=== PATIENT | male | born 1965 | race Caucasian/White ===

== ENCOUNTER 2018-03-05 05:36 | Emergency (ER) | payer BC, OTHER ==
[2018-03-05] MEDS ORDERED: KETOROLAC TROMETHAMINE INJ 30 MG/ML VIAL IV ONE (05:50)
[2018-03-05] MEDS ORDERED: ONDANSETRON INJ 4 MG/2 ML VIAL IV ONE (05:50)
[2018-03-05] MEDS ORDERED: MORPHINE SULFATE INJ 10 MG/ML VIAL IV ONE (05:51)
[2018-03-05] MEDS ORDERED: SODIUM CHLORIDE 0.9% 1000ML 1,000 ML IVS ONE (05:51)
[2018-03-05 05:53] VITALS: TEMP 97
--- NOTE | 2018-03-05 05:54 | ED.PDOC ---
History of Present Illness - General Source: patient, RN notes reviewed, Vital Signs reviewed Exam Limitations: no limitations - History of Present Illness Timing/Duration: just prior to arrival, this morning Quality: moderate Onset Location: groin Radiation: left flank Activites at Onset: none Prior abdominal problems: none Improving Factors: nothing Worsening Factors: nothing Associated Symptoms: nausea/vomiting, urinary frequency <Tank Starkey - Last Filed: 03/05/18 06:51> <JES MAHONEY - Last Filed: 03/05/18 07:30> - General Chief Complaint: Problem Stated Complaint: throbbing pain low back, abd, and scrotal sac Time Seen by Provider: 03/05/18 05:43 - History of Present Illness Allergies/Adverse Reactions: Allergies NO KNOWN ALLERGY Allergy (Verified 03/05/18 05:46) Home Medications: Ambulatory Orders Aspirin [Durga Chewable Low Dose] 81 PO DAILY 02/08/14 Olmesartan Medoxomil [Benicar] 10 PO DAILY 02/08/14 Tramadol HCl [Ultram] 100 mg PO Q8HRS PRN 2 Days #10 tab 03/05/18 Review of Systems - Review of Systems Constitutional: States: no symptoms reported EENTM: States: no symptoms reported Respiratory: States: no symptoms reported Cardiology: States: no symptoms reported Gastrointestinal/Abdominal: States: abdominal pain, nausea Genitourinary: States: no symptoms reported Musculoskeletal: States: no symptoms reported Skin: States: no symptoms reported Neurological: States: no symptoms reported Endocrine: States: no symptoms reported Hematologic/Lymphatic: States: no symptoms reported <Tank Starkey - Last Filed: 03/05/18 06:51> Past Medical History (General) - Patient Medical History Hx Congestive Heart Failure: No Hx Hypertension: Yes Hx Diabetes: No Surgical History: other - Vaccination History Hx Tetanus, Diphtheria Vaccination: No Hx Influenza Vaccination: No Hx Pneumococcal Vaccination: No - Social History Hx Tobacco Use: No Hx Alcohol Use: Yes - beer <Tank Starkey - Last Filed: 03/05/18 06:51> Family Medical History - Family History Father Hx Cardiac Disease: Yes <Takn Starkey - Last Filed: 03/05/18 06:51> Physical Exam - Physical Exam General Appearance: Alert, Obvious distress, Restless, Well Groomed, Well Nourished Eyes, Ears, Nose, Throat Exam: PERRL/EOMI, normal ENT inspection Neck: non-tender, full range of motion, supple Cardiovascular/Respiratory: regular rate, rhythm, no M/R/G, normal peripheral pulses, no JVD, normal breath sounds, no respiratory distress Gastrointestinal/Abdominal: normal bowel sounds, non tender, soft, other - no pulsitile mass Back Exam: normal inspection, CVA tenderness (L) Extremity: normal range of motion, non-tender, normal inspection, no pedal edema , no calf tenderness Neurologic: no motor/sensory deficits, alert Skin Exam: normal color, warm/dry Lymphatic: no adenopathy <Tank Starkey - Last Filed: 03/05/18 06:51> Progress - Progress Progress: 03/05/18 05:54 pt with history of kidney stone states feels similarly; past previous stone without complications. discussed treatment plan with pt and family. pt states has started to feel improved. discussed reasons for CT scan and will wait pending lab/ urine results. will treat symptomatically at this time for kidneystone given pt's presentation. do not feel that patient has torsion/ hernia/ AAA/ dissection/ colitis/ diverticulitis at this time after my examination / HPI 03/05/18 06:51 03/05/18 05:51 Sodium Chloride 0.9% 1000ML [Ns 1000 ml] 1,000 ml IVS ONCE 03/05/18 05:54 URINALYSIS Stat Laboratory Results WBC 4.1 K/mm3 (4.8-10.8) L 03/05/18 05:51 RBC 4.92 M/mm3 (4.70-6.10) 03/05/18 05:51 Hgb 15.2 gm/dL (14.0-18.0) 03/05/18 05:51 Hct 43.6 % (42.0-52.0) 03/05/18 05:51 MCV 88.6 fl (80.0-94.0) 03/05/18 05:51 MCH 31.0 pg (27.0-31.0) 03/05/18 05:51 MCHC 35.0 g/dL (33.0-37.0) 03/05/18 05:51 RDW 13.3 % (11.5-14.5) 03/05/18 05:51 Plt Count 219 K/mm3 (130-400) 03/05/18 05:51 MPV 6.5 fl (7.40-10.4) L 03/05/18 05:51 Absolute Neuts (auto) 2.00 K/uL (1.8-6.8) 03/05/18 05:51 Absolute Lymphs (auto) 1.50 K/uL (1.0-3.4) 03/05/18 05:51 Absolute Monos (auto) 0.50 K/uL (0.2-0.8) 03/05/18 05:51 Absolute Eos (auto) 0.10 K/uL (0.0-0.4) 03/05/18 05:51 Absolute Basos (auto) 0.00 K/uL (0.0-0.1) 03/05/18 05:51 Neutrophils % 49.5 % (42.0-78.0) 03/05/18 05:51 Lymphocytes % 35.6 % (20.0-50.0) 03/05/18 05:51 Monocytes % 11.9 % (2.0-9.0) H 03/05/18 05:51 Eosinophils % 2.3 % (1.0-5.0) 03/05/18 05:51 Basophils % 0.7 % (0.0-2.0) 03/05/18 05:51 Sodium 137 mmol/L (135-145) 03/05/18 05:51 Potassium 3.9 mmol/L (3.6-5.0) 03/05/18 05:51 Chloride 104 mmol/L (101-111) 03/05/18 05:51 Carbon Dioxide 24 mmol/L (21-31) 03/05/18 05:51 Anion Gap 12.9 (12-18) 03/05/18 05:51 BUN 27 mg/dL (7-18) H 03/05/18 05:51 Creatinine 1.03 mg/dL (0.6-1.3) 03/05/18 05:51 BUN/Creatinine Ratio 26.2 (10-20) H 03/05/18 05:51 Random Glucose 104 mg/dL (70-105) 03/05/18 05:51 Serum Osmolality 279.2 mOsm/L (275-295) 03/05/18 05:51 Calcium 9.4 mg/dL (8.4-10.2) 03/05/18 05:51 Total Bilirubin 0.6 mg/dL (0.2-1.0) 03/05/18 05:51 AST 20 IU/L (10-42) 03/05/18 05:51 ALT 20 IU/L (10-60) 03/05/18 05:51 Alkaline Phosphatase 57 IU/L (42-121) 03/05/18 05:51 Serum Total Protein 7.3 gm/dL (6.4-8.2) 03/05/18 05:51 Albumin 4.5 g/dl (3.2-5.5) 03/05/18 05:51 Globulin 2.8 gm/dL (2.3-3.5) 03/05/18 05:51 Albumin/Globulin Ratio 1.6 (1.1-1.9) 03/05/18 05:[address] Mahoney, pt currently symptom free <Tank Starkey - Last Filed: 03/05/18 06:51> - Progress Progress: 03/05/18 07:24 Trace scrotal discomfort but otherwise feels fine. He feels that the pain was lessening somewhat even before the meds. Previous stone was on the right. Has been having increased heat exposure recently. He appears comfortable. His abd is nontender & I do not feel a mass or the aorta.. I agree with Dr. Starkey that this is most likely a kidney stone. I do not think he needs any further work up at this time. He has a PCP & I have encouraged him to f/u with him. - Results/Orders Results/Orders: microscopic hematuria; WBC 4 <JES MAHONEY - Last Filed: 03/05/18 07:30> Departure <Tank Starkey - Last Filed: 03/05/18 06:51> - Departure Time of Disposition: 07:28 <JES MAHONEY - Last Filed: 03/05/18 07:30> - Departure Clinical Impression: Kidney stone on left side Disposition: Discharge to Home or Self Care Condition: Good Departure Forms: ED Discharge - Pt. Copy, Patient Portal Self Enrollment Instructions: DI for Kidney Stones Referrals: Moose Duran III, MD [Primary Care Provider] - 1-5 Days Prescriptions: Tramadol HCl [Ultram] 100 mg PO Q8HRS PRN 2 Days #10 tab PRN Reason: Moderate To Severe Pain Home Medications: Ambulatory Orders Aspirin [Durga Chewable Low Dose] 81 PO DAILY 02/08/14 Olmesartan Medoxomil [Benicar] 10 PO DAILY 02/08/14 Tramadol HCl [Ultram] 100 mg PO Q8HRS PRN 2 Days #10 tab 03/05/18
[2018-03-05 07:55] VITALS: BP 112/78; O2SAT 94
== END 2018-03-05 07:45 | disposition home or self-care (01) ==
LOC: ER 05:36
DX: N20.0 Calculus of kidney (principal); I10 Essential (primary) hypertension; Z79.82 Long term (current) use of aspirin
CPT/HCPCS: 36415; 80053; 81001; 85025; J1885; J2270; J2405; J7030

== ENCOUNTER → 2018-05-29 | Outpatient (CLI) | payer OTHER ==
--- NOTE | 2018-05-29 15:12 | MRI ---
EXAM DESCRIPTION: Lumbar Spine w/o Contrast : Magnetic Resonance Imaging. CLINICAL HISTORY: LOW BACK PAIN COMPARISON: None. TECHNIQUE: Multiplanar, multiple standard sequences, non contrast MRI, lumbar spine. FINDINGS: L5-S1: Minimal desiccation. Posterior midline and left paracentral bulge 4 mm with bright T2-weighted annular fissure. Moderate left paracentral canal narrowing. Near stenosis of the right foramen and moderate narrowing of the left foramen. Minimal arthrosis bilateral facets. L4-5: Disc desiccation with disc space preserved and no bulging. Hyperintense T1 and T2 signal in the left posterior lateral disc margin. Minimal facet arthrosis and hypertrophy bilaterally with mild narrowing of the canal and moderate narrowing of the bilateral foramina. Well-circumscribed hyperintense T1 and T2 signal in the L4 vertebral body. L3-4: Normal signal in the disc with no bulging. Disc space maintained. Posterior elements unremarkable. Canal and bilateral foramina are patent. L2-3: Normal signal in the disc and disc space preserved. Posterior elements unremarkable. Canal and foramina are patent. L1-2: Normal signal in the disc and disc space preserved. Posterior elements unremarkable. Canal and foramina are patent. T12-L1: Normal signal in the disc and disc space preserved. Canal and foramina are patent. Posterior elements unremarkable. Conus terminates at this level. Anatomic alignment and curvature of the spine. Paravertebral soft tissues are negative. Normal marrow signal in the remaining vertebral bodies and the posterior elements. Vertebral bodies are not compressed at any level. IMPRESSION: 1. L5-S1 disc desiccation with left paracentral disc bulge with annular fissure. Moderate canal narrowing. Near stenosis of the right foramen with arthrosis of the facet. 2. Moderate narrowing of the bilateral foramina at L4-5 with facet arthrosis. Disc with no bulging but left posterior lateral annular fissure abutting the foramen. Hemangioma in the L4 vertebral body. Electronically signed by: Srinivas Metz MD 05/29/2018 3:11 PM CDT
== END ==
LOC: MRI 11:03
PROVIDERS: ATTEND Family Medicine
DX: M51.17 Intervertebral disc disorders with radiculopathy, lumbosacral region (principal)

== ENCOUNTER 2018-06-02 00:54 | Emergency (ER) | payer OTHER ==
[2018-06-02 01:11] VITALS: TEMP 98.9
[2018-06-02] MEDS: KETOROLAC TROMETHAMINE INJ 30 MG/ML VIAL IM ONE (01:17)
[2018-06-02] MEDS: MORPHINE SULFATE INJ 10 MG/ML VIAL IM ONE (01:17)
--- NOTE | 2018-06-02 01:19 | ED.PDOC ---
History of Present Illness - General Chief Complaint: Back Pain or Injury Stated Complaint: back pain radiates down left leg,2 herniated disks Time Seen by Provider: 06/02/18 01:13 Source: patient Exam Limitations: no limitations - History of Present Illness Initial Comments: Patient presents with severe low back pain. The pain is lumbar with radiation to the left thigh. He had an MRI last week and was diagnosed with an L4-L5 disc herniation. He has been taking hydrocodone, cyclobenzaprine, and oral steroids. Until now, they have been controlling it somewhat. However, tonight the pain became worse and this is the first time it started radiating down the left leg. The pain is constant, aching and shooting, worse with movement, better with rest. Before this summer he had no previous back problems. No incontinence. No other complaints. He took two hydrocodone 10/325 about one hour ago and a cyclobenzaprine about 30 minutes ago. Timing/Duration: changing over time Severity: severe Improving Factors: rest Worsening Factors: movement Associated Symptoms: denies symptoms Allergies/Adverse Reactions: Allergies NO KNOWN ALLERGY Allergy (Verified 06/02/18 01:11) Home Medications: Ambulatory Orders Benicar 06/02/18 Cyclobenzaprine HCl [Flexeril] 10 mg PO 06/02/18 HYDROcodone 10MG/APAP 325MG [[place] 10/325] 1 ea PO 06/02/18 Methylprednisolone [Medrol Dose Phillip] 4 mg PO DAILY 06/02/18 Review of Systems - Review of Systems Constitutional: States: no symptoms reported EENTM: States: no symptoms reported Respiratory: States: no symptoms reported Cardiology: States: no symptoms reported Gastrointestinal/Abdominal: States: no symptoms reported Genitourinary: States: no symptoms reported Musculoskeletal: States: see HPI Skin: States: see HPI Neurological: States: see HPI Past Medical History (General) - Patient Medical History Hx Seizures: No Hx Stroke: No Hx Dementia: No Hx Asthma: No Hx of COPD: No Hx Cardiac Disorders: No Hx Congestive Heart Failure: No Hx Pacemaker: No Hx Hypertension: Yes Hx Thyroid Disease: No Hx Diabetes: No Hx Gastroesophageal Reflux: No Hx Renal Disease: No Hx of HIV: No Hx MRSA: No - Vaccination History Hx Tetanus, Diphtheria Vaccination: No Hx Influenza Vaccination: No Hx Pneumococcal Vaccination: No - Social History Hx Tobacco Use: No Hx Alcohol Use: Yes - beer Family Medical History - Family History Father Family History: Unknown Hx Cardiac Disease: Yes Physical Exam - Physical Exam General Appearance: Alert Respiratory: lungs clear Cardiovascular/Chest: regular rate, rhythm Gastrointestinal/Abdominal: normal bowel sounds, non tender, soft Extremity: other - Cross leg raise positive at 30 degrees. Straight leg raise positive at 15 degrees. Lumbar vertebrae moderately TTP. Progress - Progress Progress: 06/02/18 01:59 Toradol 30 mg IM, Morphine 6 mg IM, and Solumedrol 60 mg IM x one significantly reduced the patient's pain. He was observed for one hour to make sure he tolerated the medications and instructed to go to sleep when he gets home and not take any more pain medications for at least six hours. Also, call his primary physician in the morning for further instruction. E.R. warnings given. Questions were elicited and answered. Patient and his voiced understanding and agreement with the plan. Departure - Departure Clinical Impression: Sciatica, Disc herniation Disposition: Discharge to Home or Self Care Condition: Good Departure Forms: ED Discharge - Pt. Copy, Patient Portal Self Enrollment Instructions: DI for Low Back Pain Diet: other - as per your primary physician Activity: other - as per your primary physician Referrals: Moose Duran III, MD [Primary Care Provider] - 1-2 Weeks Home Medications: Ambulatory Orders Benicar 06/02/18 Cyclobenzaprine HCl [Flexeril] 10 mg PO 06/02/18 HYDROcodone 10MG/APAP 325MG [[place] 10/325] 1 ea PO 06/02/18 Methylprednisolone [Medrol Dose Phillip] 4 mg PO DAILY 06/02/18 Additional Instructions: Do not take any more pain medications for at least six hours. Call your regular doctor in the morning for further instruction. Go home and try to get some sleep while the medications are peaking in your system.
[2018-06-02] MEDS ORDERED: methylPREDNISolone SODIUM SUC 125 MG/2 ML VIAL ONE (01:21)
[2018-06-02] MEDS: methylPREDNISolone SODIUM SUC 125 MG/2 ML VIAL IM ONE (01:24)
[2018-06-02 02:20] VITALS: BP 163/98; O2SAT 94
== END 2018-06-02 02:20 | disposition home or self-care (01) ==
LOC: ER 00:54
DX: M51.16 Intervertebral disc disorders with radiculopathy, lumbar region (principal); I10 Essential (primary) hypertension

== ENCOUNTER 2018-06-03 03:17 | Emergency (ER) | payer OTHER ==
[2018-06-03] MEDS ORDERED: ONDANSETRON ODT 8 MG TAB SL ONE (03:41)
[2018-06-03] MEDS ORDERED: MORPHINE SULFATE INJ 10 MG/ML VIAL IV ONE (03:41)
--- NOTE | 2018-06-03 03:47 | ED.PDOC ---
History of Present Illness - General Chief Complaint: Back Pain or Injury Stated Complaint: Back Pain Time Seen by Provider: 06/03/18 03:39 Source: patient, family, old records Exam Limitations: no limitations - History of Present Illness Initial Comments: Patient comes in for severe low back pain. Patient was bowling last Friday when sudden pain in his back become excruciating. He had no loss of bladder or bowel function and no change in sensation or radiation. Patient was seen by PCP Dr. Duran and MRI showed herniated disc at L4-L5. Patient has been placed no hydrocodone and flexeril and that works during the day but at night the pain becomes much worse. Per , he has not slept in about a week. He is scheduled to have an epidural next week but in the meantime is in severe pain tonight. He comes in because the pain became so severe and he noted tingling to his bilateral hands. (patient is breathing very fast, he states in attempt to control pain). He has no change in sensation to the legs and no radiation of pain at this time. He was seen here this morning and pain was better although not resolved until tonight. Timing/Duration: 1 week, getting worse Quality/Severity: severe, sharpness Back Pain Location: lumbar spine Method of Injury/Prior Injury: unknown Improving Factors: medication Worsening Factors: movement Associated Symptoms: muscle spasms Allergies/Adverse Reactions: Allergies NO KNOWN ALLERGY Allergy (Verified 06/03/18 03:39) Home Medications: Ambulatory Orders Benicar 10 mg PO DAILY 06/02/18 Cyclobenzaprine HCl [Flexeril] 10 mg PO Q6HR 06/02/18 HYDROcodone 10MG/APAP 325MG [Roach 10/325] 1 ea PO Q4HR PRN 06/02/18 Methylprednisolone [Medrol Dose Phillip] 4 mg PO DAILY 06/02/18 Review of Systems - Review of Systems Constitutional: States: no symptoms reported. Denies: chills, fever EENTM: States: no symptoms reported Respiratory: States: no symptoms reported Cardiology: States: no symptoms reported Gastrointestinal/Abdominal: States: no symptoms reported Genitourinary: States: no symptoms reported Skin: States: see HPI Neurological: States: see HPI Past Medical History (General) - Patient Medical History Hx Seizures: No Hx Stroke: No Hx Dementia: No Hx Asthma: No Hx of COPD: No Hx Cardiac Disorders: No Hx Congestive Heart Failure: No Hx Pacemaker: No Hx Hypertension: Yes - takes benacar daily Hx Thyroid Disease: No Hx Diabetes: No Hx Gastroesophageal Reflux: No Hx Renal Disease: No Hx Cancer: No Hx of HIV: No Hx Hepatitis C: No Hx MRSA: No Surgical History: other - Vaccination History Hx Tetanus, Diphtheria Vaccination: No Hx Influenza Vaccination: No Hx Pneumococcal Vaccination: No Immunizations Up to Date: No - Social History Hx Tobacco Use: No Hx Alcohol Use: Yes - beer Hx Substance Use: No Hx Substance Use Treatment: No Hx Depression: No Feels Threatened In Home Enviroment: No Feels Threatened In a Relationship: No Hx Physical Abuse: No Hx Emotional Abuse: No Hx Suspected Abuse: No - Activities of Daily Living Hospice Agency (if applicable):: None - Triage Comment ED Triage Comment: Pt states that he is having severe back pain since Friday last week. Pt states that he is waiting an epidural placement. Pt said that his home pain medications are not controlling his pain. Pt states his pain is 10/10. Pt also stated that he felt like his blood pressure was elevated so he took a 5mg benacar prior to arrival. Pt also took one 10/325 hydrocodone and one 800 mg metaxalone prior to arrival. Family Medical History - Family History Father Family History: Unknown Hx Cardiac Disease: Yes Physical Exam - Physical Exam General Appearance: Alert, Obvious distress Eyes, Ears, Nose, Throat Exam: PERRL/EOMI, normal ENT inspection, TMs normal Neck Exam: non-tender Cardiovascular/Respiratory: regular rate, rhythm, no M/R/G, normal peripheral pulses, normal breath sounds, no respiratory distress, tachycardia Peripheral Pulses: radial,right: 2+, radial,left: 2+ Gastrointestinal/Abdominal: normal bowel sounds, soft Back Exam: muscle spasm, vertebral tenderness Extremity Exam: no evidence of injury, normal range of motion Neurologic: no motor/sensory deficits, alert, normal mood/affect, other - DTR 2+ /4 Progress - Results/Orders Results/Orders: patient did not have relief with morphine but toradol and valium have helped immensely. Patient will call his PCP this morning and see if valium can be prescribed for the muscle spasm. Departure - Departure Clinical Impression: Degeneration of lumbar intervertebral disc Disposition: Discharge to Home or Self Care Condition: Good Departure Forms: ED Discharge - Pt. Copy, Patient Portal Self Enrollment Instructions: DI for Low Back Pain Referrals: Moose Duran III, MD [Primary Care Provider] - 1-2 Weeks Home Medications: Ambulatory Orders Benicar 10 mg PO DAILY 06/02/18 Cyclobenzaprine HCl [Flexeril] 10 mg PO Q6HR 06/02/18 HYDROcodone 10MG/APAP 325MG [[place] 10] 1 ea PO Q4HR PRN 06/02/18 Methylprednisolone [Medrol Dose Phillip] 4 mg PO DAILY 06/02/18 Additional Instructions: call MD in am. Return to ER for increase or intractable pain
[2018-06-03] MEDS ORDERED: KETOROLAC TROMETHAMINE INJ 30 MG/ML VIAL IV ONE (04:21)
[2018-06-03] MEDS ORDERED: diazePAM INJ 10 MG/2 ML SYG IV ONE (04:21)
[2018-06-03] MEDS ORDERED: diazePAM 5 MG TAB ONE (04:34)
[2018-06-03] MEDS ORDERED: diazePAM 5 MG TAB PO ONE (04:38)
[2018-06-03 07:19] VITALS: TEMP 100
[2018-06-03 07:34] VITALS: BP 134/80; O2SAT 98
== END 2018-06-03 07:45 | disposition home or self-care (01) ==
LOC: ER 03:17
DX: M51.36 Other intervertebral disc degeneration, lumbar region (principal); I10 Essential (primary) hypertension; Z79.899 Other long term (current) drug therapy
CPT/HCPCS: 81001; 82948; 85025; J1885; J2270

== ENCOUNTER 2018-06-03 18:47 | Inpatient (IN) | payer OTHER ==
--- NOTE | 2018-06-03 18:48 | HP ---
SUPERVISING PHYSICIAN: Capri Diego MD CHIEF COMPLAINT: Intractable back pain. HISTORY OF PRESENT ILLNESS: Mr. Mccartney is a 52-year-old male patient of Dr. Duran. This last week on Friday, he and his had been bowling and he had a sudden sharp pain in his lower back that has steadily worsened over the week to the point that he had to go to the Emergency Room for relief which he has been to the Emergency Room in the last 48 hours at least two times. He has been given morphine, Toradol, Valium, hydrocodone, oral steroids and cyclobenzaprine, all with minimal relief of his pain. He had an MRI done on 01/09 that showed a disc herniation at L4-L5 and is scheduled to have an epidural steroid injection by Dr. Velez this coming Friday. Despite aggressive outpatient management with pain management, he continues to have intractable pain and has not been able to get any relief of a significant amount at home over the last two days. Dr. Duran requested the patient be admitted to the hospital for intractable lower back pain and have more aggressive pain management in efforts to alleviate his pain so that he could have the epidural steroid injection done this coming Friday. The patient has no history of previous back pain. He has no mention of any incontinence or loss of bowel and notes the pain is radiating into his left leg, but is unchanged in character since the pain started. He is now being admitted directly to the Medical/Surgical Floor for intractable back pain in stable condition. PAST MEDICAL HISTORY: 1. Hypertension. PAST SURGICAL HISTORY: 1. Bilateral knee surgery, left knee times 2. CURRENT MEDICATIONS: 1. Benicar 20 mg tablets daily. 2. [place] 10/325 q.4-6h. p.r.n. pain. 3. Ketoralac 10 mg tablets t.i.d. as needed for pain. 4. Lunesta 3 mg tablets 1 tablet by mouth at bedtime for insomnia. 5. Valium 5 mg tablets 1 tablet b.i.d. 6. Metaxalone 800 mg tablets 1 tablet t.i.d. as needed. 7. Cyclobenzaprine 10 mg tablets 1 t.i.d. as needed. 8. Prednisone 10 mg tablets tapering dose. 9. Oxycodone 20 mg tablets controlled release 1 p.o. b.i.d. ALLERGIES: NIACIN CAUSES A RASH. FAMILY HISTORY: Father had coronary artery disease with stent placements as well as hypertension, diverticulosis. Mother is healthy. He has two brothers and they are both healthy. He has one son, two daughters. 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 He is and had three children. He drinks alcohol socially and he has never smoked, does not use illicit drugs. REVIEW OF SYSTEMS: CONSTITUTIONAL: Denies any fevers, chills, body aches or general malaise. HEENT: Denies nasal congestion, headaches, sore throats, earaches. RESPIRATORY: Denies coughing, wheezing, shortness of breath. CARDIOVASCULAR: Denies chest pain, palpitations or syncopal episodes. GASTROINTESTINAL: Denies nausea or vomiting, diarrhea, constipation or abdominal pain. GENITOURINARY: Denies dysuria, hematuria, polyuria or other urinary symptoms. MUSCULOSKELETAL: As noted in history of present illness. NEUROLOGIC: As noted in history of present illness. Denies any ataxia, seizures, syncopal episodes or any other neurologic focal deficits. PHYSICAL EXAMINATION: VITAL SIGNS: Temperature 98.2. Pulse 93. Blood pressure 115/75. Respirations 16. Saturation 96% on room air. Admission weight 98.5 kg. GENERAL: The patient is well kept, well groomed, appears well-nourished, well hydrated. He is actually very comfortable and in no acute distress at time of admission to the Medical/Surgical Floor after initiation of Dilaudid, Valium and Toradol. He is alert. HEENT: Tympanic membranes clear bilaterally. Oropharynx is pink, moist without any lesions. NECK: Supple, nontender with full range of motion. No jugular venous distention noted. RESPIRATORY: Lungs clear to auscultation bilaterally without any rhonchi, wheezes, or rales. CARDIOVASCULAR: Regular rate and rhythm without any appreciable murmurs, gallops, or rubs. ABDOMEN: Soft, nontender. Positive bowel sounds. EXTREMITIES: There is no cyanosis, clubbing or edema. BACK: Vertebral tenderness around L4-L5 with some muscle spasms. NEUROLOGIC: The patient is alert and oriented times three. Deep tendon reflexes 2+, both upper and lower extremities. Cranial nerves II-XII are grossly intact. Facial features are symmetrical. Extraocular movements are within normal limits. There is no nystagmus noted. LABORATORY: White count 9,100, hemoglobin 14.6, hematocrit 42.8, platelet count 205,00, differential with left shift. Chemistries show sodium 134, potassium 4.3, BUN 26, creatinine 1.05, calcium 9.0, bilirubin 1.2, ALT slightly elevated at 76, AST normal at 30. Other liver enzymes within normal limits. Urinalysis showed trace intact blood, otherwise within normal limits. RADIOLOGY: Review of previous MRI from 05/29/18 per radiologic interpretation showed L5-S1 disc dissection with left paracentral disc bulge with annular fissure moderate canal narrowing with near stenosis of the right foramen with arthrosis of the facet. There is moderate narrowing of the bilateral foramen at L4-L5 with facet arthrosis with disc with bulging, but left posterolateral annular fissure abutting the foramen with hemangioma in the L4 vertebral body. ASSESSMENT: 1. Intractable lower back pain secondary to L4-L5 disc herniation. 2. Hypertension. PLAN: The patient will be admitted tonight and started on Dilaudid TRACK SUPERVISOR for pain control as well as Valium 5 mg as needed q.6h. and Toradol initially 30 mg IV and 50 mg as needed q.6h. He will be on O2 at 2 liters per minute as long as he is on the TRACK SUPERVISOR pump. We will plan to do a physical therapy evaluation in the morning. We will hold off on any Lovenox given the findings on MRI of hemangioma until we can further assess the risk factors. We will encourage the patient to be ambulatory as much as possible once his pain is controlled. We will anticipate his length of stay to be 2 to 3 days. Hopefully he can be discharged by Friday or Friday so that he can have his epidural steroid injection done by Dr. Velez on Friday. Until discharge, we will continue to monitor the patient closely and treat appropriately. #[id number] [facility]
[2018-06-03] MEDS ORDERED: NALOXONE HCL INJ 0.4 MG/ML VIAL IV PRN (19:03)
[2018-06-03] MEDS ORDERED: diphenhydrAMINE HCL 25 MG CAP PO PRN (19:03)
[2018-06-03] MEDS ORDERED: diphenhydrAMINE HCL 50 MG/ML VIAL IV PRN (19:03)
[2018-06-03] MEDS ORDERED: diphenhydrAMINE HCL 50 MG/ML VIAL IM PRN (19:03)
[2018-06-03] MEDS ORDERED: diazePAM INJ 10 MG/2 ML SYG IV PRN (19:04)
[2018-06-03] MEDS ORDERED: SODIUM CHLORIDE 0.9% (FLUSH) 10 ML SYG IV PRN (19:06)
[2018-06-03] MEDS ORDERED: HYDROmorphone PCA 0.2 MG/ML 1 BAG BAG IVPB SCH (19:30)
[2018-06-03] MEDS ORDERED: IV SET AND CAP CHANGE INJ INJ SCH (19:30)
[2018-06-03] MEDS ORDERED: SODIUM CHLORIDE 0.9% 500ML 500 ML IVS PRN (19:51)
[2018-06-03] MEDS: diazePAM 5 MG TAB PO PRN (22:52)
[2018-06-04] MEDS: KETOROLAC TROMETHAMINE INJ 30 MG/ML VIAL IV PRN ×4 (00:04→20:36)
[2018-06-04] MEDS: diazePAM 5 MG TAB PO PRN ×3 (06:12→23:47)
[2018-06-04] MEDS ORDERED: BENICAR PO SCH (09:00)
[2018-06-04] MEDS ORDERED: PREGABALIN 100 MG CAP PO ONE (10:00)
[2018-06-04] MEDS: ACETAMINOPHEN 325 MG TAB PO PRN ×3 (10:07→23:00)
[2018-06-04] MEDS: ORPHENADRINE CITRATE 30 MG/ML AMP IV PRN (10:08)
[2018-06-04] MEDS: BENICAR 20 MG PO SCH (10:15)
[2018-06-04] MEDS: METHYLPREDNISOLONE 4 MG PO SCH (10:15)
[2018-06-04] MEDS: HYDROmorphone HCL INJ 2 MG/ML VIAL IV PRN ×2 (13:01→17:23)
[2018-06-04] MEDS: POLYETHYLENE GLYCOL 3350 17 GM PCKT PO SCH (13:01)
[2018-06-04] MEDS: ONDANSETRON INJ 4 MG/2 ML VIAL IV PRN ×2 (13:22→20:36)
[2018-06-04] MEDS ORDERED: HYDROmorphone HCL INJ 2 MG/ML VIAL IV PRN (19:55)
[2018-06-04] MEDS: DEX 5% W/NACL 0.9% 1000ML 1,000 ML IVS PRN (21:27)
[2018-06-04] MEDS: DOCUSATE SODIUM 100 MG CAP PO SCH (21:33)
[2018-06-05] MEDS: diazePAM 5 MG TAB PO PRN ×3 (03:13→15:51)
[2018-06-05] MEDS ORDERED: methylPREDNISolone TAB 4 MG TAB ONE (03:14)
[2018-06-05] MEDS: KETOROLAC TROMETHAMINE INJ 30 MG/ML VIAL IV PRN ×3 (04:09→18:08)
[2018-06-05] MEDS: ONDANSETRON INJ 4 MG/2 ML VIAL IV PRN (04:53)
[2018-06-05] MEDS: ACETAMINOPHEN 325 MG TAB PO PRN (05:04)
[2018-06-05] MEDS: ORPHENADRINE CITRATE 30 MG/ML AMP IV PRN ×2 (07:45→18:05)
[2018-06-05] MEDS: DOCUSATE SODIUM 100 MG CAP PO SCH (07:47)
[2018-06-05] MEDS: BENICAR 20 MG PO SCH (07:48)
[2018-06-05] MEDS: POLYETHYLENE GLYCOL 3350 17 GM PCKT PO SCH (07:48)
[2018-06-05] MEDS ORDERED: ORPHENADRINE CITRATE 30 MG/ML AMP IV SCH (08:00)
--- NOTE | 2018-06-05 08:30 | PN ---
DATE: 06/04/18 SUPERVISING PHYSICIAN: Chandu Diego MD SUBJECTIVE: The patient is lying in pain. He alternates between sleeping and excruciating pain, it is mostly back spasms and it was felt he was getting somewhat better but he is still having a very difficult time. He does not want to eat or drink much. His is at the bedside and she is trying to push fluids. At this time, I have explained the reason behind his pain and trying to get it under control. We will continue with muscle relaxants, pain medication and antiinflammatories to assist with his pain management. OBJECTIVE: VITAL SIGNS: He is afebrile. Heart rate 98, blood pressure is 161/101 and 148/ 98. Respiratory rate 22, 02 saturation is 98%. CHEST: Essentially clear to auscultation bilaterally. CARDIAC: Regular rate and rhythm. At times it is slightly tachycardiac. GI: Abdomen soft, nondistended, non-tender. Bowel sounds are positive. NEURO: He is awake, alert, and oriented x3. LABORATORY: CBC is basically within normal limits. Electrolytes are basically within normal limits.with the exception of his chloride is slightly low at 99. Total bilirubin is 1.8. His other liver enzymes are within normal limits. All other labs and films have been reviewed via the EMR. ASSESSMENT: 1. Intractable lower back pain secondary to L4 to L5 disk herniation with an annular tear. 2. Hypertension. PLAN: We will continue present supportive care including continued pain management. We have adjusted his Dilaudid LINE AND FRAME POLER pump to assist with his pain. I have also placed him on an oximeter to monitor his respirations. Will repeat his lab in the morning. Hopefully, we can wean down his pain medications so we can get him on a Fentanyl patch. He does have an injection on Friday from Dr. Vinayak Velez in [place] so we will try to limit his Toradol to stopping within the next 24 hours. I have encouraged him for coughing and deep breathing to prevent pneumonia as well as to keep his lungs clear. Also, he has been encouraged to be up and walking as soon as he is able. Otherwise, we will monitor him closely and follow as needed. Dr. Diego is the collaborating physician available for consultation. [facility][id number] [facility]
[2018-06-05] MEDS ORDERED: PREGABALIN 100 MG CAP ONE ×2 (08:35→08:41)
[2018-06-05] MEDS ORDERED: GABAPENTIN 100 MG CAP ONE (08:39)
[2018-06-05] MEDS: PREGABALIN 75 MG CAP PO SCH ×2 (08:51→18:09)
[2018-06-05 08:59] VITALS: O2SAT 99
[2018-06-05] MEDS ORDERED: fentaNYL PATCH 50 MCG/HR 1 EA PATCH TD SCH (09:00)
[2018-06-05] MEDS: DEX 5% W/NACL 0.9% 1000ML 1,000 ML IVS PRN (11:59)
--- NOTE | 2018-06-05 12:02 | RAD ---
EXAM DESCRIPTION: Chest,1 View CLINICAL HISTORY: 52 years Male, back pain COMPARISON: April 07, 2011 TECHNIQUE: AP portable chest. FINDINGS: Fair expansion of the lungs is evident without consolidation, layering effusion, or large mass. Heart size and vascularity appear normal for AP technique and degree of inspiration. No gross bony, hilar, or mediastinal abnormalities are noted. IMPRESSION: Normal chest, one view Electronically signed by: Enrique Liu MD 06/05/2018 12:01 PM CDT
--- NOTE | 2018-06-05 13:14 | CT ---
EXAM DESCRIPTION: Lumbar Spine (accession [id number]), Lumbar Spine w/Contrast (accession [id number]) CLINICAL HISTORY: 52 years, Male, back pain COMPARISON: MRI lumbar spine May 29, 2018 TECHNIQUE: Lumbar CT with thin-section axial imaging with reconstructed MPR images reviewed as well. Lumbar CT was initially performed without contrast enhancement and subsequently following bolus IV contrast enhancement. This exam was performed according to our departmental dose-optimization program, which includes automated exposure control, adjustment of the mA and/or kV according to patient size and/or use of iterative reconstruction technique. FINDINGS: Normal alignment of the vertebral column is present. Retroperitoneal and paraspinous structures appear normal. Aortic calcification without aneurysm with normal enhancement of the kidneys and no evidence of paravertebral left fluid collection or bony destructive process noted. A moderate right-sided L4 vertebral body hemangioma is incidentally noted. Disc and vertebral height is maintained. No evidence of disc space narrowing or endplate destruction or vertebral body destructive process is seen to suggest osteomyelitis or discitis or epidural abscess. Post enhancement imaging demonstrates a normal appearance of the disc spaces with normal disc contour at T11-12, T12-L1, L1-2, L2-3, and L3-4. No disc space narrowing or focal bulges or bony destructive changes at these levels is noted. At L4-5, modest right and more significant left facet hypertrophy and degenerative changes present with mild annular bulge and adequate spinal canal. Modest narrowing of the left L4 neural foramen from the annular bulge and facet disease is present with mild narrowing noted on the right. At L5-S1, broad-based annular bulge with a mild left parasagittal disc protrusion with minimal posterior displacement of the descending left S1 nerve root noted. Mild left and modest right facet arthropathy at this level is present. There is mild narrowing of both L5 neural foramina. IMPRESSION: 1. No evidence of an acute vertebral body or disc space or epidural inflammatory process or abscess or evidence of osteomyelitis or discitis. 2. Normal examination from L3-4 cephalad. Moderately large hemangioma anteriorly in the L4 vertebral body on the right is evident. 3. Symmetric annular bulge L4-5 with adequate spinal canal and modest facet arthropathy or significant on the left than the right with modest narrowing of the left L4 neural foramen. 4. Annular bulge L5-S1 with a small component of left parasagittal disc region abutting and minimally displacing the left S1 nerve root. Right greater than left modest facet arthropathy and mild narrowing of both neural foramina noted. Electronically signed by: Enrique Liu MD 06/05/2018 1:13 PM CDT
[2018-06-05] MEDS ORDERED: CYCLOBENZAPRINE HCL 10 MG TAB PO SCH (14:00)
[2018-06-05] MEDS: METHYLPREDNISOLONE 4 MG PO SCH (15:35)
[2018-06-05 16:31] VITALS: BP 154/104; TEMP 98
[2018-06-05] MEDS ORDERED: ENOXAPARIN SODIUM 40 MG/0.4 ML SYG SUBCU SCH (21:00)
--- NOTE | 2018-06-06 18:11 | DS ---
SUPERVISING PHYSICIAN: Chandu Diego M.D. DISCHARGE DIAGNOSIS: 1. Intractable lower back pain secondary to L4 to L5 disk herniation with an annular tear. 2. Hypertension, stable. HISTORY OF PRESENT ILLNESS: This is a 52-year-old male patient who approximately 2-1/2 weeks ago was bowling. He felt a sudden sharp pain in his lower back at that time that steadily worsened over the next few days. He actually went to the Emergency Room for relief of pain. He had been in the Emergency Room 2 different times prior to his admission. Initially he had been given morphine, Toradol, Valium, Hydrocodone, oral steroids and Cyclobenzaprine all with minimal pain relief. He had an MRI done on 06/08/18 that showed a disc herniation at L4-L5 and was scheduled for an epidural steroid injection by Dr. Velez in [place] this coming Friday. Despite aggressive outpatient management with pain management, he continued to have intractable pain and had not been able to get any relief for any significant amount of time at home for several days. He was seen by Dr. Duran and he requested that he be admitted to the hospital for intractable lower back pain to have more aggressive pain management efforts to alleviate his pain so that he could get his epidural injection on Friday. The patient had no history of previous back pain. He has never had any narcotics to speak of prior to this incident. He has had no mention of loss of bowel or incontinence. The pain was radiating into his left leg and he was admitted to the hospital. HOSPITAL COURSE: During his stay initially he was given morphine that did not help. He was changed to Dilaudid and put on the Dilaudid EXTENSION SERVICE SUPERVISOR pump. He also was given Lyrica, Toradol, Valium and muscle relaxers, all resulting in minimal relief. His initial labs showed a normal white count with a slight left shift on differential. It is to be noted that on one of his E. R. admissions, he did have a temperature to 101. After about 48 hours of aggressive pain management, the patient failed to get any substantial relief. An ESR was obtained and it was 107. His CRP was 34.4. I contacted his primary care physician, Dr. Moose Duran, who assisted me with transferring the patient to [place] for further studies and additional pain relief management. Dr. Duran and I both spoke with Dr. Josie Awad, who is an Infectious Disease specialist in [place]. She advised that the patient be transferred to [facility]. Dr. Devon Garzon, Internal Medicine physician at [facility], accepted the patient in transfer. DISCHARGE PLAN: The patient will be discharged today via ambulance to [facility]. Dr. Devon Garzon is the accepting physician with Dr. Josie Awad, Infectious Diseases, consulting. All of his labs and his radiology films were copied and sent with the patient. Report was called. Mr. Mccartney is to see his primary care physician after discharge from [place] for followup with his primary care physician, Dr. Moose Duran. He was discharged with medications that he had been on in the hospital that include his home medications. He was discharged in stable condition to [facility] in [facility]. DISCHARGE MEDICATIONS: 1. Benicar. 2. Cyclobenzaprine. 3. Diazepam. 4. Fentanyl patch. 5. Zofran. 6. Norflex. 7. MiraLAX. 8. Lyrica. #[id number] [facility]
== END 2018-06-05 18:15 | disposition short-term general hospital (02) | DRG 552 ==
LOC: MS 18:47
PROVIDERS: ADMIT Nurse Practitioner Family; ATTEND Nurse Practitioner Acute Care
DX: M51.26 Other intervertebral disc displacement, lumbar region (principal); I10 Essential (primary) hypertension; Z88.1 Allergy status to other antibiotic agents

== ENCOUNTER → 2018-06-16 | Outpatient (CLI) | payer OTHER | LOC: BFHH 09:08 | PROVIDERS: ATTEND Internal Medicine Infectious Disease | DX: A49.02 Methicillin resistant Staphylococcus aureus infection, unspecified site (principal); G06.1 Intraspinal abscess and granuloma; I10 Essential (primary) hypertension; Z47.89 Encounter for other orthopedic aftercare ==

== ENCOUNTER → 2018-06-18 | Outpatient (CLI) | payer OTHER | LOC: BFHH 19:54 | PROVIDERS: ATTEND Internal Medicine Infectious Disease | DX: A49.02 Methicillin resistant Staphylococcus aureus infection, unspecified site (principal); G06.1 Intraspinal abscess and granuloma; I10 Essential (primary) hypertension; Z47.89 Encounter for other orthopedic aftercare ==

== ENCOUNTER → 2018-06-22 | Outpatient (CLI) | payer OTHER | LOC: BFHH 08:53 | PROVIDERS: ATTEND Internal Medicine Infectious Disease | DX: A49.02 Methicillin resistant Staphylococcus aureus infection, unspecified site (principal); G06.1 Intraspinal abscess and granuloma; I10 Essential (primary) hypertension; Z47.89 Encounter for other orthopedic aftercare ==

== ENCOUNTER → 2018-06-26 | Outpatient (CLI) | payer OTHER | LOC: BFHH 17:36 | PROVIDERS: ATTEND Internal Medicine Infectious Disease | DX: A49.02 Methicillin resistant Staphylococcus aureus infection, unspecified site (principal); G06.1 Intraspinal abscess and granuloma ==

== ENCOUNTER → 2018-07-02 | Outpatient (CLI) | payer OTHER | LOC: BFHH 14:29 | PROVIDERS: ATTEND Internal Medicine Infectious Disease | DX: A49.02 Methicillin resistant Staphylococcus aureus infection, unspecified site (principal); G06.1 Intraspinal abscess and granuloma ==

== ENCOUNTER → 2018-07-09 | Outpatient (CLI) | payer OTHER | LOC: BFHH 17:48 | PROVIDERS: ATTEND Family Medicine | DX: G06.1 Intraspinal abscess and granuloma (principal) ==

== ENCOUNTER → 2018-07-20 | Outpatient (CLI) | payer OTHER | LOC: BFHH 15:50 | PROVIDERS: ATTEND Family Medicine | DX: G06.1 Intraspinal abscess and granuloma (principal) ==